=== PATIENT | male | born 1965 | race African-American/Black ===

== ENCOUNTER 2019-03-31 01:55 | Inpatient (IN) ==
--- NOTE | 2019-03-31 02:38 | PROVIDER DOCUMENTATION ---
HPI-Respiratory General - General Chief Complaint: Chest Pain Stated Complaint: CHEST PAIN/SOB Time Seen by Provider: 03/31/19 02:23 Allergies/Adverse Reactions: Patient Allergies Allergy/AdvReac Type Severity Reaction Status Date / Time No Known Allergies Allergy Verified 03/31/19 03:20 Home Medications: Home Medication List Medication Instructions Recorded Confirmed Last Taken Type Alprazolam [Xanax] 0.5 mg PO BID 05/24/13 03/02/19 02/28/19 History Clonidine [Catapres] 0.2 mg PO TID 10/24/14 03/02/19 03/02/19 08:30 History Omeprazole [Prilosec] 40 mg PO DAILY@0700 #0 capsule 10/26/14 03/02/19 02/28/19 Rx Levetiracetam [Keppra] 500 mg PO BID #60 tab 11/25/18 03/02/19 03/01/19 Rx Hydrocodone/Acetaminophen 1 tab PO PRN PRN 12/07/18 03/02/19 02/28/19 History [Hydrocodone-Acetamin 10-325 mg] - History of Present Illness-Resp Nature of Presenting Problem: pt presents with SOB, LAURA for 4-5 days. Has chills, nausea, malaise. HAs a sharp ant CP intermittently that lasts until he gets somehere and gets warm Having freq chills. Has a cough prod of yellow sputum, admits to post tussive emesis only. No rhinnorhea, no nasal congestion. Has dialysis T-Th-Sat, says never misses Quality of Pain: reports: sharp Context: denies: recent foreign travel Review of Systems - Adult - REVIEW OF SYSTEMS - ADULT Constitutional: reports: no symptoms reported Eyes: reports: other (light hurts his eyes) Ears, Nose, Mouth & Throat: reports: no symptoms reported Cardiovascular: reports: see HPI Respiratory: reports: see HPI Gastrointestinal: reports: see HPI Genitourinary: reports: no symptoms reported Musculoskeletal: reports: see HPI Integumentary: reports: no symptoms reported Neurological: reports: no symptoms reported Psychiatric: reports: no symptoms reported Endocrine: reports: no symptoms reported Hematologic/Lymphatic: reports: no symptoms reported Allergic/Immunologic: reports: no symptoms reported Past History - Adult - PAST MEDICAL HISTORY-ADULT Review of Records: reports: Medications Reviewed Major Childhood Illnesses: reports: denies history Cardiovascular: reports: HTN Respiratory: reports: denies history Gastrointestinal: reports: GERD Obstetrical/Gynecological: reports: denies history Genitourinary: reports: dialysis, ESRD, kidney disease Musculoskeletal: reports: denies history Neurological: reports: denies history, other (PAST BENZO WITHDRAWAL SEIZURES. NOT ON ANTI-EPILEPTICS) Endocrine/Immune: reports: denies history Other Conditions: reports: denies history - PRIOR SURGERIES/PROCEDURES Surgical/Procedure History: reports: other (dialysis shunt left forearm) - PRIOR HOSPITALIZATIONS Prior Hospitalizations: reports: none - IMMUNIZATION STATUS Childhood Immunizations: See Nurse Assessment Flu Vaccine: See Nurse Assessment - FAMILY HISTORY Family History: reviewed, not pertinent Physical Exam-General - PHYSICAL EXAM-ADULT Initial Vital Signs Reviewed: Yes - CONSTITUTIONAL General Appearance: alert, mild distress - EYES Eyes: PERRL/EOMI, pink conjunctivae - HEAD, EARS, NOSE, MOUTH & THROAT HENMT: normocephalic/atraumatic, moist mucous membranes, normal ENT inspection, pharynx normal - NECK Neck: full range of motion, supple, normal inspection - RESPIRATORY Respiratory: lungs clear, normal breath sounds, no respiratory distress, no accessory muscle use - CARDIOVASCULAR Cardiovascular: regular rate, rhythm, no edema - GASTROINTESTINAL (ABDOMEN) Abdominal Exam: normal bowel sounds, non tender, soft - MUSCULOSKELETAL Back Exam: normal inspection, no CVA tenderness, no vertebral tenderness, decreased range of motion Extremity: normal range of motion, non-tender, normal inspection - SKIN Integumentary: normal color, normal turgor, warm/dry - NEUROLOGIC Neurologic: [employer] II-XII nml as tested, grossly normal, no motor/sensory deficits - PSYCHIATRIC Psych/Mental Status: normal mood/affect, normal thought content, normal thought process, oriented x 3 Progress - PLAN OF CARE/RESULTS Progress/Plan/Lab Results: Vital Signs - 8 hr 03/31/19 02:09 03/31/19 02:18 03/31/19 03:08 Temperature 99.5 F Pulse Rate 88 90 87 Respiratory Rate 15 20 20 Blood Pressure 180/95 178/102 170/102 O2 Sat by Pulse Oximetry 94 L 90 L 90 L 03/31/19 03:30 03/31/19 04:00 Temperature Pulse Rate 85 92 H Respiratory Rate 23 20 Blood Pressure 171/103 188/114 O2 Sat by Pulse Oximetry 92 L 90 L 03/31/19 03:10 Influenza Screen - Final Nasopharyngeal Laboratory Results - last 24 hr 03/31/19 03/31/19 03:08 03:08 WBC 5.75 RBC 3.22 L Hgb 10.0 L Hct 30.7 L MCV 95.3 MCH 31.1 H MCHC 32.6 L RDW Std Deviation 13.5 Plt Count 237 MPV 11.3 H Immature Gran % (Auto) 0.0 Neut % (Auto) 65.4 Lymph % (Auto) 19.0 L [place]itus % (Auto) 12.3 H Eos % (Auto) 2.6 Baso % (Auto) 0.7 Immature Gran # (Auto) 0.00 Neut # (Auto) 3.76 Lymph # (Auto) 1.09 L [place] # (Auto) 0.71 H Eos # (Auto) 0.15 Baso # (Auto) 0.04 Sodium 139 Potassium 4.3 Chloride 95 L Carbon Dioxide 27 Anion Gap 17 BUN 35 H Creatinine 9.9 H Estimated GFR/1.73 m2 7 BUN/Creatinine Ratio 4 Glucose 102 Calculated Osmolality 286 Calcium 9.1 Total Bilirubin 0.35 AST 13 ALT 13 Alkaline Phosphatase 112 Total Protein 7.5 Albumin 4.1 Globulin 3.4 Albumin/Globulin Ratio 1.2 Orders Category Date Time Status CHEST-2 VIEWS [RAD] Stat Exams 03/31/19 02:31 Taken CBC WITH DIFF [HEME] Stat Lab 03/31/19 03:08 Completed COMPREHENSIVE METABOLIC PANEL [CHEM] Stat Lab 03/31/19 03:08 Completed INFLUENZA SCREEN A/B Stat Lab 03/31/19 03:10 Completed Ondansetron [Zofran] Med 03/31/19 04:00 Discontinued 8 mg IV NOW ONE Result Diagrams: 03/31/19 03:08 03/31/19 03:08 - EKG 1 Time of EKG reading by physician:: 02:17 EKG Read and Signed by:: Raymond Sneed EKG Interpretation (*Must complete 3 of following elements*): Abnormal Rate: 86 Rhythm: NSR QRS: other (partial R BBB, LAFB) ST Wave: non-specific ST changes Departure - Departure Date of Disposition Decision: 03/31/19 Time of Disposition Decision: 05:00 DIAGNOSIS: Hypoxia URI (upper respiratory infection) Qualifiers: URI type: unspecified viral URI Qualified Code(s): J06.9 - Acute upper respiratory infection, unspecified Chronic renal failure Qualifiers: Chronic kidney disease stage: stage 5 Qualified Code(s): N18.5 - Chronic kidney disease, stage 5 Disposition: ADMITTED INPATIENT 09 Certified Medical Emergency: Emergent Condition: Good Referrals and Follow-Ups: Jorge Miller MD [Primary Care Provider] - - Critical Care Note This patient required my direct & personal management of CC.: No Attestation - Physician/ OCTAVIO Attestation Patient care was provided by Advanced Practice Provider:: No The physician spent face to face time with patient:: Yes Advanced Practice Provider documentation review:: Supervising physician onsite and consulted in the evaluation and care of this patient. The physician did have a face to face encounter with the patient.
[2019-03-31 03:38] LABS: BASO# 0.04 X1000 (0.0-0.2); BASO% 0.7 % (0.0-0.8); EOS# 0.15 X1000 (0.0-0.7); EOS% 2.6 % (0.0-10.0); HEMATOCRIT 30.7 % (42.0-52.0); LYMPH# 1.09 X1000 (1.2-3.4); MCH 31.1 PG (27-31); MCHC 32.6 g/dL (33-37); MCV 95.3 FL (81-99); MONO# 0.71 X1000 (0.11-0.59); MONO% 12.3 % (1.7-9.3); MPV 11.3 FL (7.4-10.4); NEUT# 3.76 X1000 (1.4-6.5); NEUT% 65.4 % (42.2-75.2); PLT 237 X1000 (130-400); RBC 3.22 XMIL (4.7-6.1); RDW 13.5 % (11.5-14.5); WBC 5.75 X1000 (4.8-10.8)
[2019-03-31 03:43] LABS: ALB/GLOB RATIO 1.2; ALBUMIN 4.1 g/dL (3.5-5.0); CALCIUM 9.1 mg/dL (8.8-10.2); POTASSIUM 4.3 mmol/L (3.5-5.1); TOTAL BILIRUBIN 0.35 mg/dL (0.20-1.00); TOTAL PROTEIN 7.5 g/dL (6.3-8.3)
[2019-03-31 03:47] LABS: CREATININE 9.9 mg/dL (0.7-1.2)
[2019-03-31] MEDS ORDERED: ZOFRAN IV ONE (04:00)
[2019-03-31] MEDS ORDERED: ZITHROMAX 500 MG/NS 500 MG/250 ML IVPB IV ONE (05:44)
[2019-03-31] MEDS ORDERED: ROCEPHIN 1 GM in NS 50 ML IV ONE (05:44)
[2019-03-31] MEDS ORDERED: TYLENOL PO PRN (06:01)
[2019-03-31] MEDS ORDERED: ZOFRAN IV PRN (06:01)
[2019-03-31] MEDS: HEPARIN SUBQ SCH ×2 (06:28→17:53)
[2019-03-31] MEDS ORDERED: TIGHT: 0.2 ML/HR FOR DIALYSIS MISC PRN (06:35)
[2019-03-31] MEDS ORDERED: NS 2,000 ML MISC PRN (06:35)
[2019-03-31] MEDS ORDERED: HEPARIN IV PRN (06:35)
--- NOTE | 2019-03-31 07:11 | HISTORY AND PHYSICAL ---
CHIEF COMPLAINT: Cough, shortness of breath. HISTORY OF PRESENT ILLNESS: This is a 53-year-old male with a past medical history of end-stage renal disease with Thursday, and Thursday dialysis, and hypertension, who comes into the emergency room with having a few days of fevers, chills, nausea, vomiting, cough, posttussive sputum which was green, and shortness of breath. He has kept all dialysis appointments. He denies being around any sick relatives. Chest x-ray in the ER was suspicious for a questionable right lower lobe pneumonia. A CT scan without contrast is pending. He will be admitted for further evaluation and treatment. PAST MEDICAL HISTORY: Polycystic kidney disease, GERD. See HPI. PREVIOUS SURGICAL HISTORY: Left upper arm dialysis shunt. SOCIAL HISTORY: No tobacco, alcohol, or illicit drugs. FAMILY HISTORY: Positive for hypertension, NE and CVA. REVIEW OF SYSTEMS: A 14-point review of systems conducted with the patient. Pertinent positives listed above in the HPI. PHYSICAL EXAMINATION: VITAL SIGNS: Temperature 99.5, pulse 83, respirations 21, blood pressure 154/102, and oxygen saturation is 99% on 2 L nasal cannula. GENERAL: A pleasant 53-year-old male lying on the ER stretcher. Answers all questions appropriately. He is alert and oriented x3. is at bedside, very supportive. He is in no acute distress. HEENT: The head is atraumatic and normocephalic. The pupils are equal, round, and reactive to light. The extraocular eye movement is intact. The sclerae are nonicteric. The conjunctivae are pale. The oral mucosa is moist. NECK: Supple. No JVD. No thyromegaly. The trachea is midline. No cervical lymphadenopathy. CARDIAC: S1, S2 appreciated. No murmurs, gallops, or rubs. LUNGS: Crepitations bilateral bases, right greater than left. No rhonchi. No wheezing. Symmetric rise and fall with respirations. ABDOMEN: Soft, nondistended. Tender in the epigastric area. Bowel sounds present in all four quadrants. Normoactive. No pulsatile masses. No organomegaly. EXTREMITIES: No cyanosis, clubbing or edema. 2+ pedal pulses bilaterally. GENITOURINARY: No bladder distention, otherwise deferred. NEUROLOGICAL: Alert and oriented x3. No focal motor deficits. Otherwise nonfocal examination. DIAGNOSTIC DATA: Chest x-ray is suspicious for possible right lower lobe pneumonia. CT noncontrast is pending. LABORATORY DATA: White blood cell count 5.75, hemoglobin 10, hematocrit 30.7, platelet count 237,000. Sodium 139, potassium 4.3, chloride 95, carbon dioxide 27, BUN 35, creatinine 9.9, glucose 102. ASSESSMENT AND PLAN: 1. Probable right lower lobe pneumonia. This was community acquired. We will treat with Zithromax and Rocephin intravenously daily. Send blood cultures. 2. End-stage renal disease with Thursday, and Thursday hemodialysis. We will consult Dr. Mcgregor for his regularly scheduled dialysis treatment today. 3. Hypertension. We will continue home medications. 4. Anemia of chronic disease. Stable from previous admissions. 5. Further recommendations per the patient's clinical course. Dictated by JESSICA Reed for Mayuri Garcia MD cc: JESSICA Reed MD
--- NOTE | 2019-03-31 07:21 | Diag Imaging Result Doc PS360 ---
EXAM: CT THORAX W/O CONTRAST 03/31/2019 HISTORY: fever dyspnea TECHNIQUE: This exam was performed using automated exposure control, adjustment of mA or kV according to patient size, and/or use of iterative reconstruction technique. COMMENT: The current examination is compared with the previous study of 10/28/2017. There is increased interstitial opacity in both lung bases with patchy groundglass opacity present in the right lower and middle lobe and in a small area of both anterior upper lobes. The interstitial opacities are worse than on the previous study however the patchy groundglass opacities which were previously present particularly in the right upper lobe have improved. There is more groundglass opacity in the right lower lobe than on the previous study. There are bilateral pleural effusions more so on the right than the left. The volume of fluid is greater than on the previous study. There are polycystic kidneys. There is a pericardial effusion which was also the case previously. There are extensive coronary calcifications. There are calcified nodes in the left hilum and subcarina. There are some prominent prevascular and periaortic nodes which have not changed significantly since the previous study. There are prominent left axillary nodes which were also present previously. IMPRESSION: Slightly worsened pulmonary edema since 10/28/2017. Worsened pleural effusions. The possibility of superimposed pneumonitis cannot be excluded. Electronically signed by Jacob Quiñones 03/31/2019 7:19 AM
--- NOTE | 2019-03-31 07:55 | Diag Imaging Result Doc PS360 ---
EXAM: CHEST-2 VIEWS INDICATION: sob TECHNIQUE: 2 views COMPARISON: 08/07/2018 FINDINGS: There are increased interstitial markings bilaterally with Marito B lines consistent with pulmonary edema. There is minimal subsegmental atelectasis at the periphery of the left midlung zone. There is no discrete pleural fluid collection or pneumothorax. There is cardiomegaly that appears to have developed during the interval. IMPRESSION: Cardiomegaly and interstitial edema as described. Electronically signed by Angel Gonzalez 03/31/2019 7:53 AM
--- NOTE | 2019-03-31 08:00 | EKG Report ---
Test Performed on : 03/31/2019 02:05:37 AM Test Reason : ED. NO EKG ORDER FOR MUSE Blood Pressure : / mmHG Vent. Rate : 086 BPM Atrial Rate : 086 BPM P-R Int : 182 ms QRS Dur : 096 ms QT Int : 398 ms P-R-T Axes : 063 -55 080 degrees QTc Int : 476 ms Normal sinus rhythm. Possible Left atrial enlargement Incomplete right bundle branch block Left anterior fascicular block Nonspecific T wave abnormality Prolonged QT Abnormal ECG When compared with ECG of 07-AUG-2018 09:55, Left anterior fascicular block is now present Criteria for Inferior infarct are no longer present Unconfirmed Result
[2019-03-31] MEDS: CATAPRES PO SCH ×3 (14:05→21:17)
[2019-03-31] MEDS: PRILOSEC PO SCH (14:06)
[2019-03-31] MEDS ORDERED: NORCO-10 PO PRN (14:33)
--- NOTE | 2019-03-31 15:04 | NEPHROLOGY CONSULTATION ---
DATE: 03/31/2019 REASON FOR ADMISSION: Cough associated with weakness and shortness of breath. CONSULTING PHYSICIAN: Dr. Sneed. REASON FOR CONSULT: End-stage renal disease with fluid volume overload, pulmonary edema. HISTORY OF PRESENT ILLNESS: Mr. Solitario is a 53-year-old, male who is known to our outpatient services for hemodialysis on Thursday, , and Thursday at the [facility]. The patient states that he was awoken this a.m. secondary to his increased work of breathing. He was unable to stay at home. He knows that he had dialysis today but presented to [facility] Emergency Department. His chest x-ray at admission was questionable for right lower lobe pneumonia. He had a CT scan done without contrast which indicated pulmonary edema and pleural effusions with not ruling out pneumonia. He was subsequently admitted. Due to this pulmonary edema, we decided to go ahead and dialyze the patient today. We placed him on a 2 K bath. He was dialyzed for 3.5 hours. We attempted to pull 4 L of ultrafiltration. and re- evaluation in the a.m. for further dialysis needs. He currently denies any chest pain. States that he has had fever and chills, some nausea and vomiting with couproductive cough. He has had a green productive sputum, associated with increased work of breathing. PAST MEDICAL HISTORY: Patient has polycystic kidney disease, end-stage renal disease with hemodialysis on Thursday, , and Thursday, anemia of chronic disease, osteodystrophy of chronic disease, GERD. PREVIOUS SURGICAL HISTORY: Left upper arm fistula with good palpable thrill. SOCIAL HISTORY: He is . He lives with his spouse. Denies tobacco, alcohol, or illicit drug use. FAMILY HISTORY: Positive for hypertension, MIs, and CVAs. No ESRD. ALLERGIES: Listed as no known drug allergies. HOME MEDICATIONS: Have yet to be reconciled. REVIEW OF SYSTEMS: Times 10 with pertinent positives listed above in the HPI. MOST RECENT VITAL SIGNS: Temperature 97.9 degrees, blood pressure 161/99, heart rate 79, respirations 19. The patient was currently on 35% face mask. He was saturating 99% on evaluation. LABORATORY DATA: Sodium 139, potassium 4.3, chloride is 95, CO2 27, BUN 35, creatinine 9.9, glucose 102. His white count is 5.75, hemoglobin 10, hematocrit 30.7, with a platelet count of 237,000. Anion gap is 17, calcium 9.1, albumin 4.1. CT of the chest shows pulmonary edema, pleural effusions without ruling out pneumonia. PHYSICAL EXAMINATION: General: This is a 53-year-old, male who appears mildly short of breath, lying on a stretcher. He is alert and oriented. His skin is warm and dry. HEENT: Normocephalic, atraumatic. Conjunctivae are pale pink. He has BE. Mucous membranes are dry. Neck: Supple. Trachea midline. He is positive for JVD. Cardiovascular: He has a regular rate and rhythm. Systolic murmur with an S4 and a palpable heave. Lungs: Crackles [address] posterior[address] He is currently on face mask. Good saturation. Abdomen: Soft, nontender. Positive bowel sounds. Genitourinary: Not inspected. Minimal void with dialysis assist. Extremities: Have no edema. No clubbing or cyanosis. Fistula to the left upper arm with good palpable thrill. Neurological: He is alert and oriented x4. ASSESSMENT AND PLAN: 1. Chronic kidney disease stage 5D. This is patient's routine dialysis treatment day. We will place him on a 2 K bath. He is to dialyze for 3.5 hours. We will attempt to pull patient 4 L of ultrafiltration. We will re-evaluate in the am. 2. Possible right lower lobe pneumonia. The patient has been given Rocephin and Zithromax intravenously. Blood cultures are pending. 3. Electrolytes and acid-base balance. These are acceptable. 4. Anemia. This is acceptable. 5. Hypertension. The patient has been restarted on his home medications, to be followed by the primary care. I would like to thank you for allowing us to follow with this patient. Dictated by JESSICA Kim for Dennis Mcgregor MD Face to face encounter, data reviewed, discussed with Ayden Morley on 03/31/19. I agree with the above assessment and plan of care. cc: JESSICA Kim MD [facility]
[2019-03-31] MEDS: XANAX PO SCH (15:19)
[2019-03-31] MEDS: KEPPRA PO SCH ×2 (15:20→21:01)
[2019-03-31] MEDS: NORCO-10 PO PRN ×2 (15:21→18:55)
[2019-03-31] MEDS: PHOSLO PO SCH (17:52)
[2019-04-01] MEDS: XANAX PO SCH ×3 (02:17→21:38)
[2019-04-01] MEDS ORDERED: ROCEPHIN 1 GM in NS 50 ML IV SCH ×2 (06:00→13:45)
[2019-04-01] MEDS: ZITHROMAX 500 MG/NS 500 MG/250 ML IVPB IV SCH (06:15)
[2019-04-01] MEDS: PHOSLO PO SCH ×3 (06:17→17:04)
[2019-04-01] MEDS: PRILOSEC PO SCH (06:17)
[2019-04-01] MEDS: HEPARIN SUBQ SCH ×2 (06:17→18:05)
[2019-04-01 07:37] LABS: BASO# 0.05 X1000 (0.0-0.2); BASO% 1.4 % (0.0-0.8); EOS# 0.26 X1000 (0.0-0.7); EOS% 7.2 % (0.0-10.0); HEMATOCRIT 29.6 % (42.0-52.0); HEMOGLOBIN 9.3 g/dL (14.0-18.0); LYMPH# 1.24 X1000 (1.2-3.4); LYMPH% 34.3 % (20.5-51.1); MCH 30.2 PG (27-31); MCHC 31.4 g/dL (33-37); MCV 96.1 FL (81-99); MONO# 0.63 X1000 (0.11-0.59); MONO% 17.4 % (1.7-9.3); MPV 10.9 FL (7.4-10.4); NEUT# 1.44 X1000 (1.4-6.5); NEUT% 39.7 % (42.2-75.2); PLT 210 X1000 (130-400); RBC 3.08 XMIL (4.7-6.1); RDW 13.5 % (11.5-14.5); WBC 3.62 X1000 (4.8-10.8)
[2019-04-01 07:55] LABS: CALCIUM 9.5 mg/dL (8.8-10.2); POTASSIUM 4.3 mmol/L (3.5-5.1)
[2019-04-01 08:00] LABS: CREATININE 7.7 mg/dL (0.7-1.2)
[2019-04-01] MEDS: KEPPRA PO SCH ×2 (09:01→21:38)
[2019-04-01] MEDS: ZANAFLEX PO SCH (09:02)
[2019-04-01] MEDS: CATAPRES PO SCH ×3 (09:03→17:04)
--- NOTE | 2019-04-01 09:05 | Diag Imaging Result Doc PS360 ---
EXAM: CHEST-1 VIEW 04/01/2019 HISTORY: pl effusion TECHNIQUE: AP portable at 0856 COMMENT: There is cardiomegaly. There is increased interstitial markings and fluid in the minor fissure on the right. There is platelike atelectasis or fibrosis in the lingula. Compared to the previous study of 03/31/2019 the interstitial opacity has improved slightly. IMPRESSION: Slightly improved pulmonary edema. Right pleural effusion and lingular atelectasis. Electronically signed by Jacob Quiñones 04/01/2019 9:03 AM
--- NOTE | 2019-04-01 11:38 | NEPHROLOGY PROGRESS NOTE ---
DATE: 04/01/2019 SUBJECTIVE: Patient is sitting up in bed. He states that his breathing is better. He has removed his oxygen mask. OBJECTIVE: Vital Signs: Temperature 98 degrees, pulse 71, respiratory rate 16, blood pressure. 147/98. Intake 360 mL. Output 4 L. PHYSICAL EXAMINATION: General: This is a middle-aged gentleman sitting up in bed. He is awake and alert. He is in no acute distress. HEENT: Normocephalic, atraumatic. Conjunctivae are pink. He has reactive pupils. Neck: Supple. He has trace JVD. Cardiovascular: Regular rate and rhythm with a systolic murmur and a gallop. Pulmonary: He is clear bilaterally today. He has equal excursion. He is currently on room air. Abdomen: Soft, with positive bowel sounds. Genitourinary: Not inspected. He has dialysis assist. Extremities: No edema, clubbing, cyanosis. He is ambulate. Integumentary: Skin is warm and dry. Neurologic: Grossly nonfocal. LABORATORY DATA: WBC of 3.6, hemoglobin 9.3 sodium 136, potassium 4.3, creatinine 7.7. ASSESSMENT AND PLAN: 1. Chronic kidney disease 5 D. Yesterday was his routine dialysis day. He was noted to have pleural effusion as well as pneumonia on his chest imaging. He had his dry weight challenged and had 4 L removed of ultrafiltrate. Rechecking his chest x-ray today to evaluate fluid volumes. If he continues with pleural effusion, we will go ahead and run him just for UF removal only. Otherwise will plan for his next routine treatment on Thursday, which is his normal day. 2. Right lower lobe pneumonia. No changes to current antibiotics. Cultures pending. 3. Electrolytes, acid-base balance anemia. These are stable. Dictated by JESSICA Main for Dennis Mcgregor MD Data reviewed, discussed with Erendira Strong on 04/01/19. I agree with the above assessment and plan of care. cc: Dennis Mcgregor MD [facility]
--- NOTE | 2019-04-01 14:42 | PROGRESS NOTE ---
DATE: 04/01/2019 SUBJECTIVE: This morning, Mr. Solitario referred to be feeling a little better but still has some residual shortness of breath and generalized weakness. OBJECTIVE: Vital Signs: Blood pressure is 152/98, pulse is 65, respirations 14, temperature 98.8 degrees. General: Mr. Solitario is a 52-year-old gentleman. He is in bed, no distress. Mucosa is pink and moist. Anicteric. Acyanotic. Neck: Supple. Chest: Air entry is bilaterally reduced. There are a few crackles in the posterior lung gonzalez. Cardiovascular: Regular rate and rhythm. Abdomen: Soft, nontender. Extremities: No pedal edema. Neurologic: Patient is awake, alert, and oriented. The patient has a fistula on the left upper extremity. Foot. LABORATORY DATA: WBC is 3.62, hemoglobin is 9.3, platelet count of 210,000. Chemistry is also reviewed which is consistent with renal failure. DIAGNOSTIC STUDIES: Chest x-ray this morning shows slightly improved pulmonary edema. There is a right pleural effusion and lingular atelectasis. ASSESSMENT: 1. Generalized weakness and chills, questionable for infectious course. Chest x-ray suggests possible right lower lobe pneumonia. Patient is getting IV antibiotics. There are also blood cultures which are pending to rule out any bacteremia. 2. End-stage renal disease on hemodialysis. 3. Hypertension, controlled. 4. Anemia of chronic disease. 5. Subclinical hypothyroidism. In general, Mr. Solitario seems to be doing progressively well. No fever and chills seems to have resolved. No nauseation. We are pending the blood culture final report and hopefully if it is negative, we will be able to discharge him on some oral antibiotics. cc: Srinivas Sorensen MD
[2019-04-01] MEDS: NORCO-10 PO PRN ×2 (18:04→22:48)
[2019-04-02] MEDS: ZITHROMAX 500 MG/NS 500 MG/250 ML IVPB IV SCH (05:31)
[2019-04-02] MEDS: PRILOSEC PO SCH (06:01)
[2019-04-02] MEDS: PHOSLO PO SCH ×2 (06:01→13:46)
[2019-04-02] MEDS: HEPARIN SUBQ SCH (06:01)
[2019-04-02] MEDS ORDERED: HEPARIN IV PRN (07:47)
[2019-04-02] MEDS ORDERED: NS 2,000 ML MISC PRN (07:47)
[2019-04-02] MEDS ORDERED: TIGHT: 0.2 ML/HR FOR DIALYSIS MISC PRN (07:47)
[2019-04-02 07:57] VITALS: BP 165/107
[2019-04-02 08:38] LABS: BASO# 0.04 X1000 (0.0-0.2); BASO% 0.9 % (0.0-0.8); EOS# 0.24 X1000 (0.0-0.7); EOS% 5.4 % (0.0-10.0); HEMATOCRIT 29.3 % (42.0-52.0); HEMOGLOBIN 9.4 g/dL (14.0-18.0); LYMPH# 1.27 X1000 (1.2-3.4); LYMPH% 28.7 % (20.5-51.1); MCH 30.2 PG (27-31); MCHC 32.1 g/dL (33-37); MCV 94.2 FL (81-99); MONO# 0.53 X1000 (0.11-0.59); MPV 10.7 FL (7.4-10.4); NEUT# 2.34 X1000 (1.4-6.5); PLT 217 X1000 (130-400); RBC 3.11 XMIL (4.7-6.1); RDW 13.2 % (11.5-14.5); WBC 4.42 X1000 (4.8-10.8)
[2019-04-02 09:04] LABS: ALBUMIN 3.5 g/dL (3.5-5.0); CALCIUM 8.6 mg/dL (8.8-10.2); CREATININE 9.5 mg/dL (0.7-1.2); PHOSPHORUS 4.9 mg/dL (2.7-4.5); POTASSIUM 4.4 mmol/L (3.5-5.1)
[2019-04-02] MEDS ORDERED: NORVASC PO ONE (12:14)
[2019-04-02] MEDS: CATAPRES PO SCH ×2 (13:37)
[2019-04-02] MEDS: ZANAFLEX PO SCH (13:38)
[2019-04-02] MEDS: KEPPRA PO SCH (13:38)
[2019-04-02] MEDS: XANAX PO SCH (13:38)
--- NOTE | 2019-04-02 13:40 | DISCHARGE SUMMARY ---
ADMISSION DATE: 03/31/2019 DISCHARGE DATE: 04/02/2019 DISPOSITION: Home. FOLLOW UP: 1. Dr. Jorge Miller 2. Dr. Dennis Mcgregor CONSULTATIONS DURING THIS ADMISSION: Nephrology was consulted and the patient was seen by Dr. Mcgregor. INVASIVE PROCEDURES DONE DURING THIS ADMISSION: None. IMAGING STUDIES OF SIGNIFICANCE: 1. A chest x-ray showed cardiomegaly and interstitial edema. 2. A CT scan of the chest showed slightly worsening pulmonary edema and worsening pleural effusion. The possibility of a superimposed pneumonitis cannot be excluded. 3. A repeat chest x-ray did show slightly improved pulmonary edema. ADMISSION DIAGNOSES: 1. Probable right lower lobe pneumonia. 2. End-stage renal disease. 3. Hypertension. 4. Anemia of chronic disease. DIAGNOSES AT THE TIME OF DISCHARGE: 1. Generalized weakness and chills secondary to right lower lobe pneumonia, improved. 2. Pulmonary edema secondary to fluid overload from end-stage renal disease. 3. End-stage renal disease on hemodialysis. 4. Hypertension. 5. Anemia of chronic disease. 6. Subclinical hypothyroidism. The patient has been advised to repeat thyroid function tests in 2 weeks. DISCHARGE MEDICATIONS: 1. Xanax 0.5 mg b.i.d. 2. Catapres 0.2 mg p.o. 3 times per day. 3. Omeprazole 40 mg p.o. daily. 4. Keppra 500 mg b.i.d. 5. [place]. 6. Tizanidine. 7. Augmentin 875 mg 1 tablet every 12 hours. PRESENTING COMPLAINT: Cough and shortness of breath. HISTORY OF PRESENTING COMPLAINT: Mr. Solitario, a 53-year-old gentleman with a history of end-stage renal disease on hemodialysis Thursday, , and Thursday, complained of fever, chills, and some cough and came to the Emergency Department where he was evaluated and was suspected to have pneumonia. He was subsequently admitted and started on IV antibiotics. HOSPITAL COURSE: Mr. Solitario remained completely afebrile during the hospital course. He was started on IV antibiotics and was seen by Nephrology and started back on his routine renal replacement therapy. He did improve throughout the hospital course. The shortness of breath and fever resolved and he did not have any more chills. This morning he refers to be feeling a lot better. We think he is clinically stable for discharge after dialysis. This morning his blood pressure is 165/107, pulse 80, respirations 22, temperature 98.8, and the patient is saturating 97%. All the discharge instructions have been discussed with him and he voiced understanding. Time spent for discharge was 32 minutes. cc: MD Jorge Monreal MD Reginald D. Gladish, MD
--- NOTE | 2019-04-02 13:44 | NEPHROLOGY PROGRESS NOTE ---
DATE: 04/02/2019 SUBJECTIVE: Patient states that he had a rather sudden onset of shortness of breath and a feeling of heaviness in his chest when IV fluids are being given him this morning. Those were stopped. He continues to have some shortness of breath, but is in no acute distress. OBJECTIVE: Vital Signs: Temperature 98.3 degrees, pulse 72, respiratory rate 18, blood pressure 166/105. Intake and output: Intake 2.1 L. Output was not measured. He has minimal void. General: Middle-aged gentleman sitting up in bed. He is in no acute distress and is able to sleep. Wakes easily when I say his name. HEENT: Normocephalic, atraumatic. Conjunctivae are pink. Neck: Supple with trace JVD. Cardiovascular: Regular rate and rhythm with a systolic murmur. No gallop. Pulmonary: He has some decreased breath sounds, but no wheezes. He is now on 2 L nasal cannula. Abdomen: Soft, with positive bowel sounds. Genitourinary: Minimal void. Hemodialysis assist. Extremities: He has trace pretibial edema. No clubbing, cyanosis. Integumentary: Skin is warm and dry. LABORATORY DATA: Pending. ASSESSMENT AND PLAN: 1. Chronic kidney disease, 5D. We did not dialyze him yesterday, as he did not have any significant changes on his chest x-ray. Today, he did have some change in his respiratory status. I discussed with the patient and the dialysis nurses that we would ultrafiltrate back down to his last end weight which was challenged below his regular dry weight, and we will again challenge with another liter of fluid removal off. The patient is in agreement with this. 2. Right lower lobe pneumonia. His blood cultures remain negative. I do not see a sputum culture available. DISPOSITION: Continue henodialysis per his regular outpatient schedule while he remains in the hospital and then he can continue as an outpatient after discharge. Hopefully with the additional fluid removal today, he will have some improvement, and we can make some strides to that point. Dictated by JESSICA Main for Dennis Mcgregor MD cc: Dennis Mcgregor MD [facility]
[2019-04-02] MEDS: NORCO-10 PO PRN (13:46)
[2019-04-03] MEDS ORDERED: NORVASC PO SCH (09:00)
== END 2019-04-02 16:43 | disposition home or self-care (01) | DRG 193 ==
LOC: ED 01:55 → 3N 06:28 → SUATTDRO 06:28
PROVIDERS: ATTEND Internal Medicine
CPT/HCPCS: 71010; 71020; 71045; 71046; 71250; 80048; 80053; 80069; 83735; 84439; 84443; 85025; 87040; 87275; 87276; 87804; 93005; 94760; 99285; A9270; J0456; J0696; J1644; J2405; J7030